=== PATIENT | female | born 2000 | race Caucasian/White ===

== ENCOUNTER 2020-07-19 01:25 | Outpatient (CLI) | payer OTHER, SELFPAY ==
--- NOTE | 2020-07-19 09:25 | DI.US_ITS ---
APPROVED REPORT EXAM: Comprehensive 2D, Doppler, and color-flow Echocardiogram Patient Location: [facility] Relationship Manager: Theresa Rodriguez RDCS (AE) Indications: Abnormal EKG, s/p Covid Other Information Study Quality: Good Conclusion Left Ventricle : The left ventricle is normal size. The left ventricular systolic function is normal. The left ventricular ejection fraction is within the normal range. There is normal left ventricular wall thickness. There is normal LV segmental wall motion. The left ventricular diastolic function is normal. LVEF is 60%. Right Ventricle : The right ventricle is normal size. The right ventricular systolic function is norm al. The RVSP is 23.4mmHg. Atria : The left atrium size is normal. The right atrium size is normal. Valves: There are no hemodynamically significant valvular lesions. Great Vessels : The aortic root is normal in size. The ascending aorta is normal in size. Aortic arch is normal in caliber. IVC is normal in size and collapses >50% with inspiration. There is no prior study available for comparison. Wall motion Left Ventricle The left ventricle is normal size. The left ventricular systolic function is normal. The left ventric ular ejection fraction is within the normal range. There is normal left ventricular wall thickness. T here is normal LV segmental wall motion. The left ventricular diastolic function is normal. There is no ventricular septal defect visualized. LVEF is 60%. Right Ventricle The right ventricle is normal size. The right ventricular systolic function is normal. The RVSP is 23 .4mmHg. Atria The left atrium size is normal. The right atrium size is normal. The interatrial septum is intact wit h no evidence for an atrial septal defect. Aortic Valve The aortic valve is normal in structure. Aortic valve is trileaflet. There is no aortic valvular sten osis. Trace aortic regurgitation. Mitral Valve The mitral valve is normal in structure. No evidence of mitral valve stenosis. Trace mitral regurgita tion. Tricuspid Valve The tricuspid valve is normal in structure. There is no tricuspid valve stenosis. Trace tricuspid reg urgitation. Pulmonic Valve The pulmonary valve is normal in structure. There is no pulmonic valvular stenosis. Trace pulmonic re gurgitation. Great Vessels The aortic root is normal in size. The ascending aorta is normal in size. Aortic arch is normal in ca liber. IVC is normal in size and collapses >50% with inspiration. Pericardium There is no pericardial effusion. 2D Dimensions IVSD d PLAX 0.80 cm F: 0.6-1.0 LV Vol A2C d MOD 108.8 mL LVPW d PLAX 0.85 cm F: 0.6 - 1.0 LV Vol A4C d MOD 96.7 mL LVID d PLAX 4.41 cm F: 3.8 - 5.2 LA vol/ BSA A2C s A-L 20.4 mL/m2 LVDs 2.95 cm F: 2.2 - 3.5 LA vol/ BSA A4C s A-L 19.7 mL/m2 Ao Root d 2.47 cm F: 2.7 - 3.3 LA Vol/ BSA Biplane s A-L 20.9 mL/m2 RA Area A4C 10.97 cm2 LA Area A4C s MOD 15.41 cm2 RA Vol/ BSA A4C s A-L 10.7 mL/m2 LA Area A2C s MOD 15.04 cm2 Ao Asc Diam d 2.50 cm F: 2.3 - 3.1 LV EF A4C MOD 59.0 % LV EF Teichholz 61.6 % LV EF A2C MOD 59.7 % LVEF (Gibson's) 58.86 % F: 54 - 74 LV EF Biplane MOD 58.9 % LV Volume 77.56 mL F: 46 - 106 SV 60.88 mL LV Volume Index 38.78 mL/m2 F: 29 - 61 SV Index 30.43 mL/m2 LV Vol Biplane MOD 103.4 mL FS 32.85 % M-Mode TAPSE 2.45 cm (M/F) >1.7 LV Diastology MV E' medial 0.144 (>0.07 m/s) E/A Ratio 2.7 LV E/e MED 7.35 (<14) MV E Vmax 1.07 (0.4-1.3 m/s) MV E' lateral 0.262 (>0.1 m/s) MV A Vmax 0.40 (0.4-1.3 m/s) LV E/e LAT 4.05 (<14) MV E/A Ratio 2.41 MV E/E' medial 7.39 MV E/E' lateral 4.06 Aortic Valve LVOT Area 2.94 cm2 AoV Area Vmax 2.59 cm2 LVOT Vmax 1.27 m/s AoV Area/ BSA (Vmax) 1.30 cm2/m2 LVOT Mean Ayaan. 0.77 m/s TREMAYNE Mean Ayaan. 2.24 cm2 LVOT Peak Grad 6.4 mmHg TREMAYNE Mean Ayaan. Index 1.12 cm2/m2 LVOT Mean Grad 2.9 mmHg LVOT VTI 0.256 m LVOT Diam s 1.90 cm AoV Vmax 1.44 m/s Velocity Ratio 0.88 AoV Mean Ayaan. 1.01 m/s AoV Peak Grad 8.3 mmHg LVOT SV 75.25 mL AoV Mean Grad 4.5 mmHg AoV VTI 0.270 m AoV Area VTI 2.79 cm2 AoV Area/ BSA (VTI) 1.39 cm/m2 Mitral Valve MV DT 169 (160-240 msec) MV PHT 49 msec MV Area PHT 4.50 cm2 Pulmonary Valve PV Vmax 1.06 (0.5-1.5 m/s) RVOT Peak Gr. 3.43 mmHg PV Peak Grad 4.5 mmHg RVOT Mean Gr. 1.55 mmHg PV Mean Grad 2.0 mmHg RVOT VTI 0.198 m PV VTI 0.218 m RVOT Vmax 0.93 m/s Tricuspid Valve TR Peak Grad 20.4 mmHg TR Vmax 2.26 m/s RA Pressure 3.00 mmHg RVSP (TR) 23.4 mmHg
== END 2020-07-19 01:45 ==
PROVIDERS: PCP Physician Assistant; Visit Provider Physician Assistant
DX: R94.31 Abnormal electrocardiogram [ECG] [EKG] (principal)
CPT/HCPCS: 93306

== ENCOUNTER 2020-07-21 02:16 | Outpatient (CLI) | payer OTHER, SELFPAY ==
[2020-07-25 08:49] LABS: Misc Referral (MAYO) See Comments
== END 2020-07-21 02:36 ==
PROVIDERS: PCP Physician Assistant; Visit Provider Physician Assistant
DX: Z02.5 Encounter for examination for participation in sport (principal)
CPT/HCPCS: 36415; 84484

== ENCOUNTER 2020-08-08 21:02 | Outpatient (REF) | payer OTHER, SELFPAY ==
[2020-08-10 15:20] LABS: Chlamydia Result Negative (Negative); GC Result Negative (Negative)
== END 2020-08-08 21:22 ==
LOC: LBN 21:02
PROVIDERS: PCP Physician Assistant; Visit Provider Nurse Practitioner Women's Health
DX: Z11.3 Encounter for screening for infections with a predominantly sexual mode of transmission (principal); N92.6 Irregular menstruation, unspecified
CPT/HCPCS: 87491; 87591

== ENCOUNTER 2020-08-10 02:44 | Outpatient (CLI) | payer OTHER, SELFPAY ==
[2020-08-10 14:33] LABS: TSH (W/Ref FT4) 2.42 uIU/mL (0.36-3.74)
[2020-08-10 21:41] LABS: Prolactin 9.9 ng/mL (See Table)
[2020-08-11 09:26] LABS: DHEA Sulfate 183 ug/dL (134-407)
[2020-08-13 16:57] LABS: Testosterone, Free 0.98 ng/dL (0.06-1.08); Testosterone, Total 41 ng/dL (8-60)
== END 2020-08-10 03:04 ==
PROVIDERS: PCP Physician Assistant; Visit Provider Nurse Practitioner Women's Health
DX: N92.6 Irregular menstruation, unspecified (principal)
CPT/HCPCS: 36415; 82627; 84402; 84403; 83001; 84146; 84443

== ENCOUNTER 2020-11-08 01:52 | Emergency (ER) | payer OTHER, SELFPAY ==
[2020-11-08 01:57] VITALS: BP 148/89; PULSE 97; RESP 16; TEMP 36.7; O2SAT 98
--- NOTE | 2020-11-08 02:07 | W.ED.GENAD ---
Discharge Plan Disposition Patient Disposition: HOME Condition: Good Discharge Details Clinical Impression: Gastritis Primary Care Provider: Penny Alicea ED Provider: Mustapha Whitehead Home Meds and New Rx's Prescriptions: New pantoprazole [Protonix] 40 mg tablet,delayed release (DR/EC) 40 mg PO DAILY Qty: 30 RF: 0 famotidine 40 mg tablet 40 mg PO BID Qty: 60 RF: 0 metoclopramide HCl [Reglan] 10 mg tablet 10 mg PO Q6H PRNQty: 10 RF: 0 Discharge Instructions Instructions: Gastritis (ED) Additional Instructions: At this time your symptoms are concerning for chronic gastritis. Please continue with your bland diet, and take the new famotidine and Protonix as directed. Please do this for the next 2 to 4 weeks. If you still do not have improvement after these treatments you may require further imaging and EGD. If you notice any worsening of your symptoms, or any new symptoms such as vomiting, diarrhea, fever, chills, shortness of breath, chest pain, numbness, weakness, or fainting , please return immediately to the emergency department for reevaluation. Please follow up with your primary care provider as soon as possible for reassessment and reevaluation. As always, it was a pleasure participating in your medical care today. Referrals: Penny Alicea PA [Primary Care Provider] - Medical Decision Making 21-year-old female who presents with 3 weeks of mild nausea, occasional vomiting, burning in the left upper quadrant. She was seen 2 weeks ago at the urgent care, she was given Zofran, and this initially helped her symptoms, but with time they returned. She admits to 1-2 episodes of vomiting per day. She has been on a bland diet ever since her last visit. She admits to a single occasional loose stool per day. She denies any blood in her vomitus or her stool. She denies any correlation with her period. She denies any significant upper chest pain, difficulty breathing, or severe lower abdominal pain. She denies any vaginal discharge. No other complaints at this time. No other modifying factors. Physical exam demonstrates no signs of an acute surgical abdomen, no significant abdominal tenderness, no right lower quadrant tenderness. Signs and symptoms at this time are clinically concerning for gastritis chronically. I do feel she would benefit from proton pump inhibitor and H2 lore. We will start her on Protonix and famotidine. Recommend continued bland diet, avoidance of carbonated beverages, and close follow-up with her PCP. At this time there is no clinical indication for emergent labs and/or imaging. I did discuss with the patient that if she does not have improvement over the next 2 to 4 weeks she may require an EGD or further imaging work-up. I have extensively reviewed the treatment plan and discharge instructions with the patient. I have addressed all patient concerns at this time. The patient was made aware of what symptoms to monitor for that would warrant a return to the emergency department. Discussed the plan with the patient, they demonstrate verbal understanding and agreement with our assessment and plan at this time. HPI General Date/Time Provider Initiated Documentation: 11/08/20 01:53. HPI Narrative: 21-year-old female who presents with 3 weeks of mild nausea, occasional vomiting, burning in the left upper quadrant. She was seen 2 weeks ago at the urgent care, she was given Zofran, and this initially helped her symptoms, but with time they returned. She admits to 1-2 episodes of vomiting per day. She has been on a bland diet ever since her last visit. She admits to a single occasional loose stool per day. She denies any blood in her vomitus or her stool. She denies any correlation with her period. She denies any significant upper chest pain, difficulty breathing, or severe lower abdominal pain. She denies any vaginal discharge. No other complaints at this time. No other modifying factors. Related Data Home Medications Medication Instructions Recorded Confirmed famotidine 40 mg PO BID #60 tab 11/08/20 metoclopramide HCl [Reglan] 10 mg PO Q6H PRN #10 tab 11/08/20 pantoprazole [Protonix] 40 mg PO DAILY #30 tab 11/08/20 Previous Rx's Medication Instructions Recorded famotidine 40 mg PO BID #60 tab 11/08/20 metoclopramide HCl [Reglan] 10 mg PO Q6H PRN #10 tab 11/08/20 pantoprazole [Protonix] 40 mg PO DAILY #30 tab 11/08/20 Allergies Allergy/AdvReac Type Severity Reaction Status Date / Time coconut Allergy Severe Anaphylaxsi Verified 08/08/20 11:12 s General Stated Complaint: Nausea/Vomit/Diar NICK: 3 Review of Systems All systems reviewed & are unremarkable except as noted in HPI and below PFSH Social History Smoking/Tobacco Use Status: Never Smoking risk assessment performed?: Yes Female Reproductive History Menstrual control method: condoms History History 0 Para 0 Hx # Term Pregnancies Multiple births Hx # Pregnancies Ectopic pregnancies AB induced Hx Number of Living Children AB spontaneous Exam Narrative Exam Narrative: 1.Const: Well-nourished, Well-developed, appearing stated age 2.Eyes: PERRL, no conjunctival injection, and symmetrical lids. 3.ENT: Atraumatic external nose and ears. Moist MM. Neck: Symmetric, trachea midline, No thyromegaly. 4.CVS: +S1/S2, No murmurs or gallops. Peripheral pulses 2+ and equal in all extremities. Brisk capillary refill in all extremities. 5.RESP: Unlabored respiratory effort. Clear to auscultation bilaterally. No wheezes rales or rhonchi 6.GI: Soft, Nontender/Nondistended, No hepatosplenomegaly. No guarding or rebound. No pain at McBurney's point, negative River sign 7.MSK: Normocephalic/Atraumatic, Extremities w/o deformity or ttp No cyanosis or clubbing, Normal movement of all extremities 8.Skin: Warm, Dry. No rashes or lesions. 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 Sensation grossly intact, no focal neurologic deficits. 10.Psych: (AAO) x3. Appropriate mood and affect Course Vital Signs Vital signs: Vital Signs Temperature 36.7 C 11/08/20 01:57 Pulse 97 H 11/08/20 01:57 Respiratory Rate 16 11/08/20 01:57 Blood Pressure 148/89 H 11/08/20 01:57 Pulse Oximetry 98 11/08/20 01:57 Temperature 36.7 C 11/08/20 01:57 Temperature Source Skin 11/08/20 01:57 Pulse 97 H 11/08/20 01:57 Respiratory Rate 16 11/08/20 01:57 Respiratory Effort 11/08/20 02:00 Blood Pressure 148/89 H 11/08/20 01:57 Blood Pressure Position Sitting 11/08/20 01:57 Pulse Oximetry 98 11/08/20 01:57 Oxygen Delivery Method Room Air 11/08/20 01:57 Oxygen Flow Rate 0 11/08/20 01:57 Pain Level 1 11/08/20 01:57
== END 2020-11-08 02:15 | disposition home or self-care (01) ==
PROVIDERS: Emergency Provider Student in an Organized Health Care Education/Training Program; PCP Physician Assistant
DX: K29.00 Acute gastritis without bleeding (principal)
CPT/HCPCS: 99283

== ENCOUNTER 2020-12-05 19:56 | Outpatient (REF) | payer OTHER, SELFPAY ==
[2020-12-07 14:39] LABS: COVID-19 RT-PCR UVMMC Result Negative (Negative)
== END 2020-12-05 19:57 | disposition home or self-care (01) ==
LOC: NCHCN 19:56
PROVIDERS: PCP Physician Assistant; Visit Provider Nurse Practitioner Family
DX: J06.9 Acute upper respiratory infection, unspecified (principal)
CPT/HCPCS: U0003

== ENCOUNTER 2021-03-23 17:33 | Emergency (ER) | payer OTHER, SELFPAY ==
[2021-03-23 17:45] VITALS: BP 147/90; PULSE 70; RESP 19; TEMP 36.6; O2SAT 99
[2021-03-23 18:12] LABS: Abs Immature Grans 0.02 10^3/uL (0.0-0.06); Absolute Basophil Count 0.05 10^3/uL (0.0-0.2); Absolute Eosinophil Count 0.16 10^3/uL (0.0-0.7); Absolute Lymphocyte Count 2.06 10^3/uL (1.2-3.4); Absolute Monocyte Count 0.58 10^3/uL (0.1-0.8); Absolute Neutrophil Count 3.97 10^3/uL (1.2-6.7); Basophils % 0.7; Eosinophils % 2.3; HCT 42.3 % (36.0-46.0); HGB 14.3 g/dL (11.2-15.7); Immature Grans % 0.3; Lymphocytes % 30.1; MCH 27.4 pg (27.0-33.0); MCHC 33.8 % (32.0-36.0); MCV 81.2 fL (80-95); MPV 9.9 fL (8.0-11.0); Monocytes % 8.5; Neutrophils % 58.1; Nucleated RBC 0 %; Platelet Count 307 10^3/uL (130-400); RBC 5.21 10^6/uL (3.93-5.22); RDW 12.1 % (11.7-14.6); RDW-SD 35.7 fL; WBC 6.84 10^3/uL (4.4-10.8)
[2021-03-23 18:25] LABS: ALT 25 U/L (14-59); AST 21 U/L (15-37); Albumin 4.1 g/dL (3.4-5.0); Alkaline Phosphatase 84 U/L (46-116); Anion Gap 8.7 mmol/L (3-11); BUN 8 mg/dL (7-18); Bilirubin, Total 0.7 mg/dL (0.2-1.0); CO2 28.3 mmol/L (21.0-32.0); CREATININE 0.8 mg/dL (0.55-1.02); Calcium 9.2 mg/dL (8.5-10.1); Chloride 104 mmol/L (98-107); Glucose 80 mg/dL (74-106); Lipase 62 U/L (73-393); Potassium 3.8 mmol/L (3.5-5.1); Sodium 141 mmol/L (136-145)
[2021-03-23] MEDS: Normal Saline 1,000 ML 1000 ML IV (18:41)
--- NOTE | 2021-03-23 19:01 | ED.GENADUL_ITS ---
Discharge Plan Disposition Patient Disposition: HOME Condition: Stable Discharge Details Clinical Impression: Nausea & vomiting Primary Care Provider: Naun Cano ED Provider: Willy Carrera Home Meds and New Rx's Prescriptions: New ondansetron HCl [Zofran] 4 mg tablet 4 mg PO Q8H PRNQty: 10 RF: 0 Continued pantoprazole [Protonix] 40 mg tablet,delayed release (DR/EC) 40 mg PO DAILY Qty: 30 RF: 0 famotidine 40 mg tablet 40 mg PO BID Qty: 60 RF: 0 metoclopramide HCl [Reglan] 10 mg tablet 10 mg PO Q6H PRNQty: 10 RF: 0 Discharge Instructions Instructions: Acute Nausea and Vomiting (ED) Additional Instructions: Laboratory values do not reveal any obvious emergent process. Zofran as directed. Plenty of fluids to avoid dehydration. Advance diet as tolerated. [id number] Tylenol and/or Motrin as directed for discomfort. I am providing you a work note for today. Please watch for new or worsening symptoms and return to the ER for any concerns. I recommend contacting your primary care provider on Friday during business hours to discuss your symptoms and need for outpatient reevaluation. Stand Alone Forms: Work Release Medical Decision Making 20-year-old female with past medical history of GERD, presents with multiple complaints. She reports symptoms began roughly 1 week ago with URI-like symptoms, had a negative Covid test at that time. Developed left-sided flank discomfort associated with urinary pressure that was resolved with cranberry juice. Later she developed right flank discomfort. She had nausea and vomiting today, last episode of vomiting 4 hours ago. She was seen at the urgent care and sent to the ER for further evaluation. Patient reports that over the past 24 hours she has also developed loose stool. Complaints across multiple review of systems. Will obtain IV access, give IV fluid and Zofran. Patient declines Zofran. Patient is willing to have blood work and urinalysis obtained, is requesting a work note for today. Differential includes but not excluded to biliary colic, UTI, nephritis, viral syndrome, gastroenteritis, appendicitis, , renal stone, etc. Given her presentation extremely low suspicion for ovarian torsion. Patient does not abdominal under my care. Laboratory values are unremarkable for obvious emergent process. Discussed findings with patient. She has additional questions or concerns and is comfortable discharge. Will provide a work note for today. Encouraged to treat her symptoms with gouk-qxe-[id number] medication, return to the ER for new or worsening symptoms, otherwise contact her primary care provider during business hours. Medical Records Medical records reviewed: Yes I reviewed the patient's medical records. Lab Data Lab results reviewed: Yes I reviewed the patient's lab results. Labs: Laboratory Tests Range/Units 03/23/21 03/23/21 03/23/21 18:05 18:05 18:35 WBC (4.4-10.8) 10^3/uL 6.84 RBC (3.93-5.22) 10^6/uL 5.21 Hgb (11.2-15.7) g/dL 14.3 Hct (36.0-46.0) % 42.3 MCV (80-95) fL 81.2 MCH (27.0-33.0) pg 27.4 MCHC (32.0-36.0) % 33.8 RDW (11.7-14.6) % 12.1 Plt Count (130-400) 10^3/uL 307 MPV (8.0-11.0) fL 9.9 Immature Gran % 0.3 Neutrophils % 58.1 Lymphocytes % 30.1 Monocytes % 8.5 Eosinophils % 2.3 Basophils % 0.7 Nucleated RBC % % 0 Absolute Neutrophils (1.2-6.7) 10^3/uL 3.97 Absolute Lymphocytes (1.2-3.4) 10^3/uL 2.06 Absolute Monocytes (0.1-0.8) 10^3/uL 0.58 Absolute Eosinophils (0.0-0.7) 10^3/uL 0.16 Absolute Basophils (0.0-0.2) 10^3/uL 0.05 Sodium (136-145) mmol/L 141 Potassium (3.5-5.1) mmol/L 3.8 Chloride (98-107) mmol/L 104 Carbon Dioxide (21.0-32.0) mmol/L 28.3 Anion Gap (3-11) mmol/L 8.7 BUN (7-18) mg/dL 8 Creatinine (0.55-1.02) mg/dL 0.8 Estimated GFR/1.73 m2 (mL/min/1.73m2) >= 60.00 Glucose (74-106) mg/dL 80 Calcium (8.5-10.1) mg/dL 9.2 Total Bilirubin (0.2-1.0) mg/dL 0.7 AST (15-37) U/L 21 ALT (14-59) U/L 25 Alkaline Phosphatase (46-116) U/L 84 Total Protein (6.4-8.2) g/dL 8.0 Albumin (3.4-5.0) g/dL 4.1 Lipase (73-393) U/L 62 Urine Color (Yellow) Yellow Urine Clarity (Clear) Sl cloudy Urine pH (5-8) 7.0 Ur Specific [place] (1.005-1.025) 1.015 Urine Protein (Negative) mg/dL Negative Urine Ketones (Negative) mg/dL Negative Urine Blood (Negative) Negative Urine Nitrite (Negative) Negative Urine Bilirubin (Negative) Negative Urine Urobilinogen (Up TO 0.2) EU/dL 0.2 Ur Leukocyte Esterase (Negative) Negative Urine Glucose (Negative) mg/dL Negative HPI General Mode of arrival: ambulatory . Date/Time Provider Initiated Documentation: 03/23/21 17:34 . Limitations to Documentation: no limitations . Information obtained by: patient . HPI Narrative: This is a 20-year-old female who reports a past medical history of acid reflux, presenting to the ER with multiple complaints. She states that last week she developed URI-like symptoms, nasal congestion, dry cough, evaluated that time and had a negative Covid test. Since that time she reports her initial symptoms improved although she developed left flank pain that was worse with movement, and had a small amount of urinary pressure multiple days ago. She took [id number]-[id number] cranberry tablets and her urinary pressure resolved. Subsequently she developed right- sided flank discomfort, left side resolved. Right side pain is mild to moderate, she has not taken jivk-evk-wrefqqy medications for her symptoms, and symptoms are worse with movement. She states that she developed mild nausea and vomited approximately 4 hours ago. She was evaluated at the urgent care and sent to the ER for further evaluation. Patient reports objective fever yesterday. She denies any headache, neck pain, sore throat, chest pain, shortness of breath, anterior abdominal pain, diarrhea, constipation, skin rash, dysuria, hematuria, vaginal bleeding or discharge. Related Data Home Medications Medication Instructions Recorded Confirmed famotidine 40 mg PO BID #60 tab 11/08/20 metoclopramide HCl [Reglan] 10 mg PO Q6H PRN #10 tab 11/08/20 pantoprazole [Protonix] 40 mg PO DAILY #30 tab 11/08/20 ondansetron HCl [Zofran] 4 mg PO Q8H PRN #10 tab 03/23/21 Previous Rx's Medication Instructions Recorded famotidine 40 mg PO BID #60 tab 11/08/20 metoclopramide HCl [Reglan] 10 mg PO Q6H PRN #10 tab 11/08/20 pantoprazole [Protonix] 40 mg PO DAILY #30 tab 11/08/20 ondansetron HCl [Zofran] 4 mg PO Q8H PRN #10 tab 03/23/21 Allergies Allergy/AdvReac Type Severity Reaction Status Date / Time coconut Allergy Severe Anaphylaxsi Verified 12/11/20 09:23 s General Stated Complaint: FlankPain NICK: 3 Review of Systems Constitutional Constitutional: Reports fever(s) and Denies headache(s) ENT Ears, Nose, Mouth, and Throat: Denies headache(s), Reports nasal congestion and Denies neck pain Cardiovascular Cardiovascular: Denies chest pain and Denies dyspnea Respiratory Respiratory: Reports cough and Denies dyspnea Gastrointestinal Gastrointestinal: Denies abdominal pain, Denies constipation, Denies diarrhea, Reports nausea and Reports vomiting Genitourinary Genitourinary: Denies dysuria and Denies vaginal discharge Musculoskeletal Musculoskeletal: Denies neck pain Integumentary/Breasts Skin/Breast: Denies rash Neurologic Neurologic: Denies headache(s) [facility] Social History Smoking/Tobacco Use Status: Never Smoking risk assessment performed?: Yes Alcohol Intake: never Drug use: Never Substance use type: does not use Do you feel safe at home: Yes Do you feel safe in your relationship?: Yes Female Reproductive History Menstrual control method: condoms History History 0 Para 0 Hx # Term Pregnancies Multiple births Hx # Pregnancies Ectopic pregnancies AB induced Hx Number of Living Children AB spontaneous Exam Const General: cooperative, healthy appearing, comfortable, no acute distress and other (Using her cell phone without difficulty) Orientation: alert, awake and oriented x3 HENMT Head: normal to inspection, normocephalic and atraumatic Face and sinus: normal facial exam Mouth: moist mucous membranes Throat: posterior oropharynx normal Eyes General: appearance normal, both eyes and all related structures Alignment and Position: alignment normal Periorbital: periorbital findings normal Eyelids: eyelids normal Conjunctivae: conjunctivae normal Sclera: sclerae normal Cornea: corneas normal Pupils: PERRL EOM: EOM intact bilaterally Direct ophthalmoscopy: normal light reflex Neck Neck: normal visual inspection, full ROM, trachea midline and supple Resp Effort & Inspection: normal respiratory effort and able to speak in complete sentences Auscultation: clear to auscultation bilaterally Cardio Rate: regular rate Rhythm: regular rhythm GI Inspection: normal to inspection Palpation: soft, not firm, no guarding, no pulsatile masses and nontender Auscultation: normal bowel sounds Back/Spine/Pelvis Back: No back tenderness Skin General skin exam: no rashes or lesions noted Neuro General: patient alert, patient awake, moves all extremities and no focal motor deficits Cognition: normal cognition Speech: speech normal Gait: normal gait Sensory Exam: no sensory deficits noted Psych Appearance: grossly normal Mental Status: mental status grossly normal Course Vital Signs Vital signs: Vital Signs Temperature 36.6 C 03/23/21 17:45 Pulse 70 03/23/21 17:45 Respiratory Rate 19 03/23/21 17:45 Blood Pressure 147/90 H 03/23/21 17:45 Pulse Oximetry 99 03/23/21 17:45 Temperature 36.6 C 03/23/21 17:45 Temperature Source Temporal Artery Scan 03/23/21 17:45 Pulse 70 03/23/21 17:45 Respiratory Rate 19 03/23/21 17:45 Respiratory Effort 03/23/21 18:47 Blood Pressure 147/90 H 03/23/21 17:45 Blood Pressure Position Sitting 03/23/21 17:45 Pulse Oximetry 99 03/23/21 17:45 Oxygen Delivery Method Room Air 03/23/21 17:45 Oxygen Flow Rate 0 03/23/21 17:45 Pain Level 5 03/23/21 17:45 Lab/Test Results Lab/Test Results: Laboratory Tests Range/Units 03/23/21 03/23/21 18:05 18:05 WBC (4.4-10.8) 10^3/uL 6.84 RBC (3.93-5.22) 10^6/uL 5.21 Hgb (11.2-15.7) g/dL 14.3 Hct (36.0-46.0) % 42.3 MCV (80-95) fL 81.2 MCH (27.0-33.0) pg 27.4 MCHC (32.0-36.0) % 33.8 RDW (11.7-14.6) % 12.1 Plt Count (130-400) 10^3/uL 307 MPV (8.0-11.0) fL 9.9 Immature Gran % 0.3 Neutrophils % 58.1 Lymphocytes % 30.1 Monocytes % 8.5 Eosinophils % 2.3 Basophils % 0.7 Nucleated RBC % % 0 Absolute Neutrophils (1.2-6.7) 10^3/uL 3.97 Absolute Lymphocytes (1.2-3.4) 10^3/uL 2.06 Absolute Monocytes (0.1-0.8) 10^3/uL 0.58 Absolute Eosinophils (0.0-0.7) 10^3/uL 0.16 Absolute Basophils (0.0-0.2) 10^3/uL 0.05 Sodium (136-145) mmol/L 141 Potassium (3.5-5.1) mmol/L 3.8 Chloride (98-107) mmol/L 104 Carbon Dioxide (21.0-32.0) mmol/L 28.3 Anion Gap (3-11) mmol/L 8.7 BUN (7-18) mg/dL 8 Creatinine (0.55-1.02) mg/dL 0.8 Estimated GFR/1.73 m2 (mL/min/1.73m2) >= 60.00 Glucose (74-106) mg/dL 80 Calcium (8.5-10.1) mg/dL 9.2 Total Bilirubin (0.2-1.0) mg/dL 0.7 AST (15-37) U/L 21 ALT (14-59) U/L 25 Alkaline Phosphatase (46-116) U/L 84 Total Protein (6.4-8.2) g/dL 8.0 Albumin (3.4-5.0) g/dL 4.1 Lipase (73-393) U/L 62 POC- Test(urine) Negative
[2021-03-23 19:03] LABS: Bilirubin Negative (Negative); Blood Negative (Negative); Clarity Sl Cloudy (Clear); Glucose Negative (Negative); Ketones Negative (Negative); Leukocyte Esterase Negative (Negative); Nitrite Negative (Negative); Specific Gravity 1.015 (1.005-1.025); Urobilinogen 0.2 EU/dL (Up TO 0.2)
== END 2021-03-23 19:20 | disposition home or self-care (01) ==
PROVIDERS: Emergency Provider Physician Assistant; PCP Physician Assistant
DX: R11.2 Nausea with vomiting, unspecified (principal)
CPT/HCPCS: 36415; 80053; 81025; 83690; 96360; 99284; 81003; 85025; 99283; J2405

== ENCOUNTER 2021-05-23 11:00 | Outpatient (REF) | payer OTHER, SELFPAY ==
[2021-05-23 22:32] LABS: Prolactin 20.9 ng/mL (See Table)
== END 2021-05-23 11:01 | disposition home or self-care (01) ==
LOC: NCHCN 11:00
PROVIDERS: PCP Physician Assistant; Visit Provider Physician Assistant
DX: D35.2 Benign neoplasm of pituitary gland (principal)
CPT/HCPCS: 84146

== ENCOUNTER 2021-07-03 13:32 | Outpatient (CLI) | payer OTHER, SELFPAY ==
--- NOTE | 2021-07-03 13:15 | DI.RAD_ITS ---
Exam(s) XR SHOULDER LT COMPLETE 2+V EXAM: XR SHOULDER LT COMPLETE 2+V CLINICAL HISTORY: LEFT SHOULDER PAIN. TECHNIQUE: 2D digital imaging was performed. COMPARISON: No exams were available for comparison FINDINGS: BONES: No acute fracture is present. No bony destructive lesion is seen. JOINTS: No dislocation present. SOFT TISSUE: Normal. IMPRESSION: Unremarkable radiographs of the left shoulder. DATA REPOSITORY: RADIATION DOSE DELIVERED:
--- NOTE | 2021-07-03 13:30 | DI.RAD_ITS ---
Exam(s) XR FINGER RT MIDDLE EXAM: XR FINGER RT MIDDLE CLINICAL HISTORY: RIGHT MIDDLE FINGER. TECHNIQUE: 2D digital imaging was performed. COMPARISON: No exams were available for comparison FINDINGS: BONES: No acute fracture is present. There is a slight deformity at the volar base of the middle fin paulette which could be related to an old fracture. No bony destructive lesion is seen. JOINTS: No dislocation present. SOFT TISSUE: Swelling around proximal interphalangeal joint. IMPRESSION: Soft tissue swelling around the PIP joint. Probable old volar plate fracture. DATA REPOSITORY: RADIATION DOSE DELIVERED:
== END 2021-07-03 13:33 | disposition home or self-care (01) ==
PROVIDERS: PCP Physician Assistant; Referring Provider Physician Assistant; Visit Provider Student in an Organized Health Care Education/Training Program
DX: M25.512 Pain in left shoulder (principal); M79.644 Pain in right finger(s); R22.31 Localized swelling, mass and lump, right upper limb
CPT/HCPCS: 73030; 73140

== ENCOUNTER 2021-07-10 11:52 | Outpatient (REF) | payer OTHER, SELFPAY ==
--- NOTE | 2021-07-10 10:15 | PAPFT_PTH ---
PATIENT: Brien Bang LOC: [facility] U#:[id number] AGE/SX: 20/F ROOM: RE07/10/[address]: GITA Castle : 2000 BED: DIS: 07/10/2021 SPEC #: [id number] RECD: 07/10/21 12:54 STATUS: CARMINE REQ #: [id number] MONIK: 07/10/21 10:[address]: Claire Sánchez DEPT: [facility] Cytology RECD BY: Shanita Love ENTERED: 07/10/21 12:54 SP TYPE: PAPFT OTHR DR: Naun Cano Tissues: 1 - CX/ENDOCX FOR PAP SMEARS Procedures: PAP THIN PREP/[facility] Screening Comments: [id number]
== END 2021-07-10 11:53 | disposition home or self-care (01) ==
LOC: LBN 11:52
PROVIDERS: PCP Physician Assistant; Referring Provider Nurse Practitioner Family; Visit Provider Nurse Practitioner Family
DX: Z12.4 Encounter for screening for malignant neoplasm of cervix (principal)
CPT/HCPCS: 88142

== ENCOUNTER 2021-08-03 16:11 | Outpatient (REF) | payer OTHER, SELFPAY ==
[2021-08-05 14:22] LABS: COVID-19 RT-PCR UVMMC Result Negative (Negative)
== END 2021-08-03 16:12 | disposition home or self-care (01) ==
LOC: LBN 16:11
PROVIDERS: PCP Physician Assistant; Visit Provider Physician Assistant
DX: Z20.822 Contact with and (suspected) exposure to COVID-19 (principal); J06.9 Acute upper respiratory infection, unspecified
CPT/HCPCS: U0003